=== PATIENT | female | born 1985 | race Caucasian/White ===

== ENCOUNTER 2017-02-25 20:53 | Emergency (ER) | payer BC ==
[2017-02-25 22:50] LABS: BASOPHILS 0.2 % (0-2); EOSINOPHILS 0.9 % (0-7); HEMATOCRIT 42.4 % (36.0-48.0); HEMOGLOBIN 14.1 g/dL (12-16); IMMATURE GRANULOCYTES 0.3 % (0-5); LYMPHOCYTES 25.4 % (15-50); MCH 29.6 pg (26.0-34.0); MCHC 33.3 g/dL (31.0-37.0); MCV 88.9 fL (80.0-100.0); MONOCYTES 4.7 % (2-11); NEUTROPHILS 68.5 % (40-80); PLATELET COUNT 221 10x3/uL (130-400); RBC 4.77 10x6/uL (4.00-5.40); RDW 12.8 % (11.5-14.5)
[2017-02-25 23:03] LABS: HCG SERUM NEGATIVE (NEGATIVE)
[2017-02-25 23:09] LABS: ALBUMIN 3.5 g/dL (3.4-5.0); ALKALINE PHOSPHATASE 78 U/L (46-116); ALT (SGPT) 48 U/L (10-68); BILIRUBIN - TOTAL 0.27 mg/dL (0.2-1.3); CALC OSMOLALITY 280 mosm/kg (275-300); CALCIUM 9.1 mg/dL (8.5-10.1); CARBON DIOXIDE 30.6 mmol/L (21.0-32.0); CHLORIDE - SERUM 103 mmol/L (98-107); CREATININE - SERUM 0.9 mg/dL (0.6-1.3); GLUCOSE 114 mg/dL (74-106); POTASSIUM - SERUM 4.2 mmol/L (3.5-5.1); PROTEIN - SERUM 7.6 g/dL (6.4-8.2); SODIUM 139 mmol/L (136-145); UREA NITROGEN 19 mg/dL (7-18); eGFR NON AFRICAN AMERICAN 77 mL/min (90-120)
== END 2017-02-26 00:20 | disposition home or self-care (01) ==
LOC: D.ER 20:53
PROVIDERS: Family Medicine
DX: R42 Dizziness and giddiness (principal); R00.2 Palpitations; H93.19 Tinnitus, unspecified ear; R00.0 Tachycardia, unspecified